=== PATIENT | male | born 1980 | race Caucasian/White ===

== ENCOUNTER 2022-10-07 19:53 | Emergency (ER) | payer SELFPAY ==
[~2022-10-07] VITALS: Ht 165.1 cm; Wt 100.0 kg
[2022-10-07 19:57] VITALS: BP 147/65; PULSE 114; RESP 20; TEMP 98.7; O2SAT 96
== END 2022-10-07 20:28 | disposition left against medical advice (07) ==
LOC: ER 19:53
DX: F10.129 Alcohol abuse with intoxication, unspecified (principal); Y90.0 Blood alcohol level of less than 20 mg/100 ml
CPT/HCPCS: 99283